=== PATIENT | male | born 1960 | race Caucasian/White ===

== ENCOUNTER → 2016-07-31 | Outpatient (CLI) | payer OTHER ==
--- NOTE | 2016-08-01 05:50 | PAIN ---
DATE OF SERVICE: 07/31/2016 INITIAL CONSULTATION FOR PAIN CLINIC CHIEF COMPLAINT: Low back and right greater than left lower extremity pain. HISTORY OF PRESENT ILLNESS: This is a 56-year-old male who presents with a history of pain in the low back for many years, but worse since 12/2015, so for about 7 months has increased after he was playing golf, so making it worse. The patient reports pain across the low back, mostly on the right side compared to the left, but present bilaterally, radiating from the right low back into the right posterior hip, left posterior hip, gluteus, right side into the groin, medial thigh and into the medial knee on the right side. This is worse with standing and walking. It is a constant pain that changes during the day with activity, worse with standing, change in positions, trying to play golf and even with prolonged sitting can be painful. The patient reports it has been to the point where it has become increased fatigue in the right leg and actually gave out on him once where he did fall about 2 months ago. He has had recent x-rays of his hip as well, which shows a normal hip joint. The patient did have MRI scan of the lumbar spine dated 07/04/2016 showing multilevel degenerative disk disease, most notable at L3-L4 with disk desiccation, small broad-based posterior disk bulge, flattening of the anterior thecal sac at L2-L3. L3-L4 shows disk desiccation with broad-based posterior disk bulge, flattening anterior thecal sac and approaching the transiting nerve roots. L4-L5 shows some disk desiccation as well. The patient reports the pain is usually better with lying down, but it can awaken him from sleep occasionally, but only very rarely. The patient reports it does not affect his bowel or bladder control, but does affect his ability to walk especially with fatigability in the right leg and again fell once secondary to fatigue in the right leg itself. The patient has been taking various painkillers, also tramadol and Neurontin, which have only been mildly helpful with the pain. He did have epidural injections in the past, which helped significantly by his report. The patient reports his disability rating from 0-10, 10 being the worst, as a 2 with family and home responsibilities, social activity, recreation, occupation, sexual behavior, 0 with self-care and 0 with life support activities. The patient has had no other current physical therapies, but is doing exercises on his own, strengthening and stretching exercises at home and staying very active and still playing golf even though his pain is limiting him to some extent with his game. PAST MEDICAL HISTORY: Significant for arthritis and associated leg weakness on the right. No previous surgery. CURRENT MEDICATIONS: Include no prescription medications currently, taking mmfh-gca-fiayuas Motrin and Advil, nothing prescription since Neurontin that he was taking last month and tramadol in May of this year. The patient tried Flexeril as well as Neurontin, which did not help much. ALLERGIES: The patient has no known drug allergies. FAMILY HISTORY: Significant for no major medical problems or conditions he is aware of. SOCIAL HISTORY: The patient drinks about 1-2 alcoholic drinks, only very rarely, probably in less than a year. He is , lives with his spouse and 1 child, living at home, lives locally in [place], [place]. REVIEW OF SYSTEMS: Positive for those items mentioned in history of present illness. All systems reviewed and otherwise negative and complete and full and well documented on the patient's chart. PHYSICAL EXAMINATION: VITAL SIGNS: The patient's blood pressure is 133/99, pulse 77, respirations 18, temperature 97.9 degrees Fahrenheit. Height is 5 feet 10 inches, weight is 189 pounds. GENERAL: The patient is awake, alert, oriented, appropriate, has a very pleasant demeanor. HEENT: Shows normocephalic, atraumatic. Extraocular movements are intact and symmetrical. Oral cavity, mucous membranes are moist and pink. Dentition is intact. NECK: Shows anterior throat supple without palpable lymphadenopathy noted. Swallow reflex is symmetrical. CHEST: Shows normal on inspection. Breath sounds clear to auscultation bilaterally. HEART: Shows S1 and S2 clear with no murmurs auscultated. ABDOMEN: Soft, nontender, nondistended. No palpable organomegaly is noted. No rebound or guarding demonstrated. BACK: Shows spine grossly in the midline. Normal-appearing thoracic kyphosis and lumbar lordotic curvature. No previous bruises, lesions, rashes or scars are noted. Lumbar paraspinous musculature shows symmetrical on inspection. With palpation, it shows some gqge-rk-groftvqj tenderness with palpation in the lower lumbar distribution and the mid lumbar distribution, more on the right than the left, but ____symmetrical again with no trigger points, radiation of pain, only diffusely tender. No tenderness over the sacrum or in the sacroiliac regions. No tenderness over the spinous processes themselves. The patient shows good rotational motion of the lumbar spine, both laterally greater than 10 degrees right and left as well as extension greater than 10 degrees, forward flexion at 45 degrees without significant pain reported. The patient's lower extremities show deep tendon reflexes at 2+ in the patellar, 1+ tendo-calcaneus tendons, are equal. Motor exam is strong with 5/5 dorsiflexion, extension, quadriceps and hamstring flexion and are symmetrical. Peripheral pulses are 1+ posterior tibial and dorsalis pedis pulses. No peripheral edema is noted. No clubbing, no cyanosis. Lower extremities are warm and dry to touch, equal in color and appearance. Straight leg raise noted to be positive on the right at about 45 degrees with pain in the medial leg and groin, but is decreased with knee flexion. Left side has negative Gaenslen's and Michael's maneuvers, but grossly negative for reproduction of pain bilaterally. The patient is able to stand, stand on his toes without difficulty or loss of balance, walks with a normal-appearing gait, not favoring the right or left lower extremity and is not using any assistive devices to ambulate. IMPRESSION: 1. This is a 56-year-old male with a long history of low back and bilateral pain, more worse on the right than the left with increasing pain over the past 7 months. 2. MRI scan as noted. 3. History of arthritis. PLAN: Options were discussed with the patient including conservative medical management, physical therapies, interventional techniques. He would like to pursue interventional techniques as he has done well with these in the past by his report. We will preauthorize the patient for a lumbar epidural steroid injection. The patient will return to clinic once this is preauthorized and we will plan on proceeding at that time. The patient was given a Medrol Dosepak to take in the meantime, was given instructions as well as side effects to be aware of with the medication and will follow up as scheduled. PAT NICK MD DR: THA/venancio JOB#: [id number] / [id number]
== END | disposition home or self-care (01) ==
LOC: PNCL 10:29
PROVIDERS: ATTEND Anesthesiology
DX: M54.2 Cervicalgia (principal); M79.605 Pain in left leg
CPT/HCPCS: 99214

== ENCOUNTER → 2016-08-14 | Outpatient (CLI) | payer OTHER ==
[~2016-08-14] MED LIST: IOHEXOL 180 MG/ML 10 ML VIAL. ONE; methylPREDNISolone ACETATE 40 MG/ML VIAL. ONE; methylPREDNISolone ACETATE 80 MG/ML VIAL. ONE
--- NOTE | 2016-08-14 09:57 | PAIN ---
DATE OF SERVICE: 08/14/2016 PROGRESS NOTE DIAGNOSES: Lumbar radiculopathy with lumbar degenerative disk disease. HISTORY OF PRESENT ILLNESS: The patient is a 56-year-old male, who returns for followup status post initial evaluation and preauthorization for lumbar epidural steroid injection. The patient returns today with authorization and like to proceed still pain across the low back into the right anterior lateral and medial thigh to the level of the knee. The patient reports dull pain at 2 on a scale of 10, currently did not take his Medrol Dosepak that we prescribed as he decided ____ want to risk any side effects from the patient reports otherwise doing well. No new motor or sensory deficits, no new bowel or bladder incontinence or other complaints. PHYSICAL EXAMINATION: VITAL SIGNS: The patient's blood pressure 132/88, pulse 77, respirations 18, temperature is 97.9 degrees Fahrenheit. Height is 5 feet 10 inches, weighs 192 pounds. GENERAL: The patient is awake, alert, oriented, appropriate, very pleasant demeanor. HEENT: Head shows normocephalic, atraumatic. Extraocular movements are intact and symmetrical. Oral cavity, mucous membranes are moist and pink. Dentition is intact. NECK: Shows anterior throat supple without palpable lymphadenopathy noted. Swallow reflex is symmetrical. CHEST: Shows normal on inspection. Breath sounds are clear to auscultation bilaterally. HEART: Shows S1 and S2 clear. No murmurs auscultated. ABDOMEN: Soft, nontender, nondistended. No palpable organomegaly is noted. No rebound or guarding demonstrated. BACK: Shows spine grossly midline. Lumbar paraspinous muscle shows some moderate tenderness with palpation in the low lumbar distribution diffusely bilaterally, slightly more on the right than the left, but without any atrophy, without any hypertrophy and without trigger points, no radiation of pain, no tenderness over the sacrum in the sacroiliac regions. EXTREMITIES: Lower extremities showed deep tendon reflexes at 2+ in the patellar, 1+ in calcaneus tendons. Motor exam is strong with 5/5 dorsiflexion, extension, quadriceps and hamstring flexion equal. Options were discussed with the patient. We will proceed with a lumbar epidural steroid injection today with fluoroscopic guidance. Risks were again discussed including, but not limited to bleeding, infection, possibility of epidural hematoma, subsequent neurological compromise, dural puncture, headaches, spinal cord and/or nerve damage, side effects of steroid medication and poor results regarding pain control. The patient understands and wishes to proceed. The patient will return to clinic in approximately 2 weeks for followup. He was counseled as to return appointment, activity level and side effects to be aware of. DIAGNOSIS: Lumbar radiculopathy with lumbar degenerative disk disease. PROCEDURES: Lumbar epidural steroid injection in translaminar approach at the L3-L4 levels with C-arm fluoroscopic guidance under sterile prep and drape using local anesthetic MEDICATION INJECTED: 120 mg Depo-Medrol plus 10 mL of preservative-free normal saline and 2 mL of Isovue for contrast. CONDITION AT DISCHARGE: Stable. The patient tolerated procedure well, had no complications. PAT NICK MD DR: THA/venancio JOB#: [id number] / [id number]
== END | disposition home or self-care (01) ==
LOC: PNCL 08:29
PROVIDERS: ATTEND Anesthesiology
DX: M51.16 Intervertebral disc disorders with radiculopathy, lumbar region (principal)
CPT/HCPCS: 62323; J1030; J1040

== ENCOUNTER → 2016-09-04 | Outpatient (CLI) | payer OTHER ==
--- NOTE | 2016-09-04 15:58 | PAIN ---
DATE OF SERVICE: 09/04/2016 DIAGNOSIS: Lumbar radiculopathy with lumbar degenerative disk disease. HISTORY OF PRESENT ILLNESS: The patient is a 56-year-old male who returns for followup status post lumbar epidural steroid injection x 1. The patient reports approximately 50% improvement in his low back and right leg. The patient reports his leg is much better. He has pain across the back now, which is back to "normal." The patient reports no new motor or sensory deficits, no new bowel or bladder incontinence, rates his pain as 2-4 on a scale 10 and is currently a 1 on a scale 10 today. The patient has been increasing activity with greater ease and comfort and sleeping well, playing golf with better comfort. The patient reports no other changes on. PHYSICAL EXAMINATION: VITAL SIGNS: The patient's blood pressure is 115/82, pulse is 50, respirations 18, temperature 98.2 degrees Fahrenheit, height is 5 feet 10 inches, and weighs 193 pounds. GENERAL: The patient is awake, alert, oriented, appropriate, very pleasant demeanor. HEENT: Head shows normocephalic, atraumatic. Extraocular movements are intact and symmetrical. Oral cavity, mucous membranes are moist and pink. Dentition is intact. NECK: Shows anterior throat supple without palpable lymphadenopathy noted. Swallow reflex is symmetrical. CHEST: Shows normal on inspection. Breath sounds clear to auscultation bilaterally. HEART: Shows S1 and S2 clear. ABDOMEN: Soft, nontender, and nondistended. No palpable organomegaly is noted. No rebound or guarding demonstrated. BACK: Shows spine grossly in the midline. Lumbar paraspinous muscle shows some moderate tenderness with palpation in the middle and lower distribution of paraspinous musculature, only diffusely without radiation, without asymmetry. The patient shows good rotation and motion of the lumbar spine, both laterally as well as extension and flexion. EXTREMITIES: Lower extremities showed deep tendon reflexes 2+ in the patellar, 1+ tendo-calcaneus tendons are equal. Motor exam is strong with 5/5 dorsiflexion, extension, quadriceps and hamstring flexion equal. Options were discussed with the patient. We will proceed with a second lumbar epidural steroid injection today with fluoroscopic guidance. Risks were again discussed including, but not limited to bleeding, infection, possibility of epidural hematoma, subsequent neurologic compromise, dural puncture, headaches, spinal cord and/or nerve damage, side effects of steroid medication and poor results regarding pain control. The patient understands and wishes to proceed. The patient will return to clinic in approximately 2 weeks for followup. He was counseled on return appointment, activity level and side effects to be aware of. DIAGNOSIS: Lumbar radiculopathy with lumbar degenerative disk disease. PROCEDURES: Lumbar epidural steroid injection in translaminar approach at the L3-L4 level using C-arm fluoroscopic guidance under sterile prep and drape of local anesthetic. MEDICATIONS INJECTED: Depo-Medrol 120 mg plus 10 mL of preservative free normal saline and 2 mL of Isovue for contrast. CONDITION AT DISCHARGE: Stable. The patient tolerated procedure well, had no complications. PAT NICK MD DR: THA/venancio JOB#: [id number] / [id number]
== END | disposition home or self-care (01) ==
LOC: PNCL 07:34
PROVIDERS: ATTEND Anesthesiology
DX: M51.16 Intervertebral disc disorders with radiculopathy, lumbar region (principal)
CPT/HCPCS: 62323; J1030; J1040

== ENCOUNTER → 2020-01-06 | Outpatient (CLI) | payer OTHER ==
--- NOTE | 2020-01-06 11:22 | KCIC ---
MRI Lumbar Spine without contrast History: Chronic low back pain, recent exacerbation pain, anterior leg pain Technique: Multiplanar, multi sequential noncontrast MR imaging was performed of the lumbar spine. Comparison: 07/03/2016 Findings: There is again transitional anatomy. For the purpose of this report, there is assumption of 5 lumbar type vertebral bodies and most inferior formed although rudimentary intervertebral disc space is considered L5-S1. There is minimal posterior subluxation of what is considered L3 relative to L4 and negligible posterior subluxation of what is considered L2 relative to L3 as seen previously. There is advanced degenerative disc disease at L1-L2, morx-ag-fjetgjna degenerative disc disease at L2-3 and minimally at L3-4. Conus terminates at the superior aspect of L1. There is some nonspecific edema of the posterior subcutaneous fat of the lower back. T12-L1: Neural foramina and spinal canal are adequate. L1-L2: There is again degenerative endplate change greater anteriorly. There is again very minimal posterior disc osteophyte complex minimally indenting the ventral thecal sac greater in the far lateral recess. Spinal canal is overall adequate. Neural foramina are adequate. L2-L3: There is now extrusion extending below the intervertebral disc space to the approximate mid one half of L3 vertebral body level eccentric to left lateral recess on the order of 14 mm CC by 13 mm transverse by 6 mm AP. There is moderate facet hypertrophic change. There is prominence of posterior epidural fat centrally. There is mild buckling of the ligamentum flavum. At the intervertebral disc space level, there is bbmw-kl-zbcshbey narrowing of the far left lateral recess. There is severe left lateral recess stenosis below the intervertebral disc space level with impingement of the left L3 nerve root, also labf-mu-cgczqqgw narrowing of the central canal. Neural foramina are adequate. L3-L4: There is very minimal disc osteophyte complex and bulge superimposed on the minimally posteriorly subluxed inferior L3 vertebral body margin. There is minimal buckling of the ligamentum flavum and facet degenerative change. Spinal canal is overall adequate. There is mild narrowing of the left neural foramen primarily from disc osteophyte complex. Right neural foramen is overall adequate. L4-L5: There is very minimal disc osteophyte complex. Spinal canal is adequate. There is byqm-ut-qkjadzux facet degenerative change. There is mild narrowing of the left neural foramen, right neural foramen adequate. L5-S1: Spinal canal and neural foramina are adequate. Impression: 1. There is transitional anatomy, most inferior formed although rudimentary intervertebral disc space considered L5-S1. There is minimal posterior subluxation of what is considered L3 relative to L4 and L2 relative to L3. There is advanced L1-2 degenerative disc disease, to lesser degree at L2-3 and L3-4. 2. There is new extrusion extending below the L2-3 intervertebral disc space in the left lateral recess, severe left lateral recess stenosis and impingement of the descending left L3 nerve root. 3. There is mild neural foramina compromise on the left at L3-4 and L4-5. Electronically signed by: Malvin Dumont MD (01/06/2020 11:20 AM) [id number]
== END ==
LOC: KCIC MRI 09:39
PROVIDERS: ATTEND Family Medicine
DX: M51.36 Other intervertebral disc degeneration, lumbar region (principal); M48.061 Spinal stenosis, lumbar region without neurogenic claudication; M51.26 Other intervertebral disc displacement, lumbar region; M25.78 Osteophyte, vertebrae
CPT/HCPCS: 72148

== ENCOUNTER → 2020-01-11 | Outpatient (CLI) | payer OTHER ==
--- NOTE | 2020-01-11 15:11 | PDOC2 ---
INITIAL PAIN CONSULT DATE OF SERVICE: DOS: DATE: 01/11/20 TIME: 15:03 CHIEF COMPLAINT: Chief Complaint: Low back and left lower extremity pain HISTORY OF PRESENT ILLNESS: This is a 59-year-old male presents history of pain for about 1 month after playing several rounds of golf patient reports pain in the low back and left lower extremity significantly and very abruptly in the left leg anterior thigh anterior medial thigh medial knee and into the anterior lower leg to the level of the ankle. Patient reports is worse after playing golf but now is much more exacerbated with weightbearing standing walking changing positions. Patient describes the pain as sharp and stabbing throbbing and shooting in the low back and radiating to the left lower extremity causing some significant weakness and fatigue and burning quality as well in the left leg. Patient ports no pain in the right leg at this time. Patient reports it wakes him from sleep release once or twice a night does not affect his bowel bladder control but does affect his bow to walk fairly significantly was not use any assistive devices. Patient has had physical therapy as well as doing exercise on his own recently with moderate decrease in pain but not lasting. Patient did have epidural injections in the past which have been helpful as well. Patient taking various nlms-hyb-zjckmuf pain medications medicines Flexeril as well as anti- inflammatories with some mild decrease in pain but no long-lasting pain relief. Patient did have MRI scan of the lumbar spine showing at L2-3 extrusion extending below the intervertebral disc with severe left lateral recess stenosis below the intervertebral to space with impingement of the left L3 nerve root and mild to moderate narrowing of the central canal L3-4 shows mild narrowing left neural foramen primarily from disc osteophyte complex. Patient reports no overt motor loss but significant fatigability with the left lower extremity with walking standing weightbearing better with sitting or laying down PAST MEDICAL HISTORY: PMH: Past medical history significant for arthritis otherwise patient's been in fairly good health PREVIOUS SURGERIES: Past Surgical Hx: No previous surgeries CURRENT MEDICATIONS: Current Meds: Active Scripts Medications Dose Route/Sig Max Daily Dose Days Date Category No Known Medications Prior To Admisstion (Info) Each 1 Each 07/31/16 Reported FAMILY HISTORY: Family Hx: No major medical conditions or problems that he is aware of SOCIAL HISTORY: Social Hx: Patient drinks alcohol about once a week does not smoke does not use any illegal illicit or recreational drugs does use chewing tobacco is lives with his spouse and 1 child in [facility] and reports he is recently retired. REVIEW OF SYSTEMS: ROS: Review of systems is positive for those items mentioned in his present illness all systems reviewed otherwise negative complete full well-documented on patient's chart PHYSICAL EXAM: VS: Blood pressure is 138/95 pulse 101 respiration 16 temperature 99.1 F height is 70.5 inches weight is 194 pounds PE: PHYSICAL EXAMINATION: GENERAL: The patient is awake, alert, oriented, appropriate, very pleasant demeanor HEENT: Shows normocephalic, atraumatic. Extraocular movements are intact and symmetrical. Oral cavity: Mucous membranes moist and pink. Dentition intact. NECK: Shows anterior throat supple without palpable lymphadenopathy noted. Swallow reflex symmetrical. CHEST: Shows normal on inspection. Breath sounds are clear bilaterally no rales rhonchi or wheezes auscultated. HEART: Shows S1, S2 clear. No murmurs auscultated. ABDOMEN: Soft, nontender, nondistended. No palpable organomegaly is noted. No rebound or guarding demonstrated. BACK: Shows spine grossly in the midline. Normal-appearing cervical lordotic curvature. There is slightly increased thoracic kyphosis, some minor flattening of the lumbar lordotic curvature. Lumbar paraspinous muscles show symmetrical on inspection, on palpation shows some moderate tenderness diffusely throughout the upper, middle and lower distribution of the paraspinous muscles bilaterally and also into the lower thoracic paraspinous musculature, firm and tender, but without specific trigger points, without radiation of pain. The patient has good rotational motion of the lumbar spine, both laterally as well as extension and flexion without significant difficulty. No tenderness over the spinous processes, sacrum or sacroiliac regions. EXTREMITIES: Lower extremities show deep tendon reflexes 2+ in the patellar and 1+ tendo calcaneus tendons. Motor exam is 5 on a scale of 5 with right dorsiflexion, extension, quadriceps and hamstring flexion and 3-4/5 on the left. Peripheral pulses are 1 posterior tibial. No peripheral edema is noted bilaterally. Lower extremities are warm and dry to touch, equal in color and appearance. Straight leg raise noted to be negative on the right, left side is positive at approximately 40 degrees decreased by knee flexion. Gaenslen's and Michael's maneuvers are negative bilaterally as well. The patient is able to stand, stand on his toes without significant difficulty or loss of balance walks with a favoring gait does appear to favor the left lower extremity fairly signi ficantly but not use any assistive device such as canes or walker to ambulate. SKIN: Shows warm and dry, good turgor. No edema. No sores, rashes or bruising throughout. IMPRESSION: Impression: 59-year-old male with 1 month history of increasing pain low back left lower extremity radicular fashion. MRI scan lumbar spine as noted History of arthritis Plan: Options discussed with the patient including conservative medical management physical therapies interventional techniques and he like to pursue interventional techniques. We discussed a lumbar epidural steroid injection using descriptions as well as anatomical model to describe the procedure. Patient understands wish to proceed we will wait for preauthorization with his insurance provider once this is obtained we will plan for a translaminar approach at the L2-3 level for lumbar epidural steroid injection at that time. In the meantime patient will maintain with stretching strength exercises also will prescribe a Medrol Dosepak with instructions and side effects be aware of discussed with the medication. PAT NICK MD Jan 11, 2020 15:11
== END | disposition home or self-care (01) ==
LOC: PNCL 13:49
PROVIDERS: ATTEND Anesthesiology
DX: M48.061 Spinal stenosis, lumbar region without neurogenic claudication (principal); M19.90 Unspecified osteoarthritis, unspecified site; M79.662 Pain in left lower leg
CPT/HCPCS: G0463

== ENCOUNTER → 2020-01-18 | Outpatient (CLI) | payer OTHER ==
--- NOTE | 2020-01-18 09:45 | PDOC ---
Progress Note - Pain Clinic Date of Service: DOS: DATE: 01/18/20 TIME: 09:42 Diagnosis: Dx: Lumbar radiculopathy with lumbar degenerative disc disease History or Present Illness: HPI: 59-year-old male returns follow-up status post initial evaluation and preauthorization for lumbar epidural steroid injection. Patient is obtained that now I would like to proceed still pain the low back left lower extremities was previously posterior gluteus lateral thigh anterior thigh medial thigh groin and medial lower leg patient reports an 8 on scale of 10 is worse of the past week 7 on average 3 at its least is a 4 today patient was aching sharp tingling burning stabbing coming more constant with walking standing changing positions we did try Medrol Dosepak after last visit but only helped a very small effect. Patient would still wake him from sleep at night he can usually repositioning it back to sleep. Patient reports no other complaints. Physical Exam: VS: Blood pressure is 134/86 pulse 87 respirations 18 temperature 98.2 F height is 70 inches weight is 194 pounds PE: PHYSICAL EXAMINATION: GENERAL: The patient is awake, alert, oriented, appropriate, very pleasant demeanor HEENT: Shows normocephalic, atraumatic. Patient wearing eyeglasses. Extraocular movements are intact and symmetrical. Oral cavity: Mucous membranes moist and pink. NECK: Shows anterior throat supple without palpable lymphadenopathy noted. Swallow reflex symmetrical. CHEST: Shows normal on inspection. Breath sounds are clear bilaterally. HEART: Shows S1, S2 clear. No murmurs auscultated. ABDOMEN: Soft, nontender, nondistended. No palpable organomegaly is noted. No rebound or guarding demonstrated. BACK: Shows spine grossly in the midline. Normal-appearing cervical lordotic curvature. There is slightly increased thoracic kyphosis, some minor flattening of the lumbar lordotic curvature. Lumbar paraspinous muscles show symmetrical on inspection, on palpation shows some moderate tenderness diffusely throughout the upper, middle and lower distribution of the paraspinous muscles bilaterally without specific trigger points, without radiation of pain. The patient has good rotational motion of the lumbar spine, both laterally as well as extension and flexion without significant difficulty. No tenderness over the spinous processes, sacrum or sacroiliac regions. EXTREMITIES: Lower extremities show deep tendon reflexes 2+ in the patellar and tendo calcaneus tendons. Motor exam is 5 on a scale of 5 with right daxa siflexion, extension, quadriceps and hamstring flexion and 3/5 on the left quadriceps and hamstring flexion and 5 out of 5 otherwise. Peripheral pulses are 1+ posterior tibial. No peripheral edema is noted bilaterally. Lower extremities are warm and dry to touch, equal in color and appearance. SKIN: Shows warm and dry, good turgor. No edema. No sores, rashes or bruising throughout. Procedure: Procedure: Options were discussed with the patient. Patient will chart was reviewed his current medication regimen updated current review of systems updated today as well. We will proceed with a lumbar epidural to injection today with fluoroscopic guidance risks are discussed including but not limited to bleeding infection possibility of epidural hematoma subsequent neurological compromise dural puncture headache spinal cord and or nerve damage side effects steroid medication and portal spine pain control. Patient understands wished to proceed. Patient return to clinic in approximately 2 weeks for follow-up was counseled return appointment to level and side effects to be aware of. Medication Injected: Med Injected: Procedure is lumbar epidural steroid injection under local anesthetic using sterile prep and drape at the L3-4 level using C-arm fluoroscopic guidance in both AP and lateral views medications injected is 120 mg Depo-Medrol + 10 mL preservative-free normal saline and 2 mL contrast- condition at discharge is stable patient tolerated procedure well had no complications. Condition at Discharge: Condition at Discharge: Condition at discharge stable, patient tolerated procedure well had no complications. PAT NICK MD Jan 18, 2020 09:45
== END | disposition home or self-care (01) ==
LOC: PNCL 08:44
PROVIDERS: ATTEND Anesthesiology
DX: M51.16 Intervertebral disc disorders with radiculopathy, lumbar region (principal)
CPT/HCPCS: 62323; J1030; J1040; Q9965

== ENCOUNTER → 2020-02-01 | Outpatient (CLI) | payer OTHER ==
--- NOTE | 2020-02-01 10:53 | PDOC ---
Progress Note - Pain Clinic Date of Service: DOS: DATE: 02/01/20 TIME: 10:50 Diagnosis: Dx: Lumbar radiculopathy with lumbar degenerative disc disease History or Present Illness: HPI: 59-year-old male returns follow-up status post lumbar epidural steroid injection x1. Patient reports approximately 70% improvement after the last injection. Patient reports pain in the low back and left lower extremity but much improved he is increasing his distance walking doing greater distances walking at work as well as at home sleeping better traveling with much greater ease and comfort. Patient reports his pain is a 3 on a scale of 10 is worse over the past week 2 on average 1 dose least is a 2 today. Patient describes the pain is tingling and dull in the low back left lower extremity rating to the anterior thigh anterior medial thigh medial lower leg as well. He does report still some instability feeling with his left knee but otherwise doing much better has no new motor or sensory deficits no bowel or bladder incontinence. Patient reports he is sleeping well at night pain generally does not awaken him from sleep. Physical Exam: VS: Blood pressure 134/90 pulse 74 respirations 18 temperature 98.4 F height is 70 inches weight is 199 pounds PE: PHYSICAL EXAMINATION: GENERAL: The patient is awake, alert, oriented, appropriate, very pleasant demeanor HEENT: Shows normocephalic, atraumatic. Extraocular movements are intact and symmetrical. Oral cavity: Mucous membranes moist and pink. NECK: Shows anterior throat supple without palpable lymphadenopathy noted. Swallow reflex symmetrical. CHEST: Shows normal on inspection. Breath sounds are clear bilaterally, no rales rhonchi or wheezes auscultated. HEART: Shows S1, S2 clear. No murmurs auscultated. ABDOMEN: Soft, nontender, nondistended. No palpable organomegaly is noted. No rebound or guarding demonstrated. BACK: Shows spine grossly in the midline. Normal-appearing cervical lordotic curvature. There is slightly increased thoracic kyphosis, some minor flattening of the lumbar lordotic curvature. Lumbar paraspinous muscles show symmetrical on inspection, on palpation shows some moderate tenderness diffusely throughout the upper, middle and lower distribution of the paraspinous muscles bilaterally but without specific trigger points, without radiation of pain. The patient has good rotational motion of the lumbar spine, both laterally as well as extension and flexion without significant difficulty. No tenderness over the spinous processes, sacrum or sacroiliac regions. EXTREMITIES: Lower extremities show deep tendon reflexes 2+ in the patellar and tendo calcaneus tendons. Motor exam is 5 on a scale of 5 with right dorsiflexion, extension, quadriceps and hamstring flexion and 4/5 on the left. Peripheral pulses are 1+ posterior tibial. No peripheral edema is noted bilaterally. Lower extremities are warm and dry to touch, equal in color and appearance. SKIN: Shows warm and dry, good turgor. No edema. No sores, rashes or bruising throughout. Procedure: Procedure: Options were discussed with the patient. Patient's old chart was reviewed his current medication regimen updated current review of systems updated today as well. We will proceed with a second in the series lumbar epidural steroid injections today with fluoroscopic guidance. Risks were discussed including but not limited to: Bleeding, infection, possibility of epidural hematoma and subsequent neurological compromise, dural puncture, headaches, spinal cord and/or nerve damage, side effects of steroid medication, and poor results regarding pain control. Patient understands wished to proceed. Patient return to the clinic in approximately 2 weeks for follow-up was counseled as to return appointment activity level and side effects to be aware of. Medication Injected: Med Injected: Procedure is lumbar epidural steroid injection under local anesthetic using sterile prep and drape at the L3-4 level using C-arm fluoroscopic guidance in both AP and lateral views medications injected is 120 mg Depo-Medrol + 10 mL preservative-free normal saline and 2 mL contrast- condition at discharge is stable patient tolerated procedure well had no complications. Condition at Discharge: Condition at Discharge: Condition at discharge stable patient tolerated procedure well had no complications. PAT NICK MD Feb 01, 2020 10:53
== END | disposition home or self-care (01) ==
LOC: PNCL 09:45
PROVIDERS: ATTEND Anesthesiology
DX: M51.16 Intervertebral disc disorders with radiculopathy, lumbar region (principal)
CPT/HCPCS: 62323; J1030; J1040; Q9965